=== PATIENT | male | born 1955 | race Caucasian/White ===

== ENCOUNTER → 2023-11-26 10:05 | Outpatient (CLI) | payer BC, SELFPAY ==
--- NOTE | 2023-11-26 | DI.US.S_ITS ---
PROCEDURE: US ABDOMEN LIMITED INDICATIONS: Ventral hernia without obstruction or gangrene TECHNIQUE: Real-time focused scanning was performed of the abdomen, with image documentation. COMPARISON: None. FINDINGS: Focused ultrasound examination of right lower anterior abdominal wall periumbilical region shows of if ileal well-circumscribed , slightly hypoechoic and solid appearing structure measures 2.1 x 0.9 x 2.8 cm in size within subcutaneous soft tissue and is similar in echotexture as adjacent subcutaneous fat. No internal vascularity is seen. Slight shadowing through this structure is noted which obscures the underlying anterior abdominal wall muscles, a tiny abdominal wall defect cannot be entirely excluded. IMPRESSION: 1. Finding may represent a small lipoma in right periumbilical anterior abdominal wall measures 2.1 x 0.9 x 2.8 cm in size. Clinical and sonographic follow-up is recommended. 2. Shadowing from the above-mentioned lesion partially obscures the evaluation of underlying right anterior abdominal wall muscle, a small defect and fat containing right ventral hernia cannot be entirely excluded. If clinically indicated, this can be further worked up with CT of abdomen without contrast. Dictated by: Ken Giordano M.D. on 11/26/2023 at 13:39 Approved by: Ken Giordano M.D. on 11/26/2023 at 13:43
== END ==
PROVIDERS: PCP Family Medicine; Referring Provider Family Medicine; Visit Provider Family Medicine
DX: K43.9 Ventral hernia without obstruction or gangrene (principal)
CPT/HCPCS: 76705